=== PATIENT | female | born 1995 | race Caucasian/White ===

== ENCOUNTER 2018-07-23 02:59 | Emergency (ER) | payer BC ==
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
[2018-07-23] MEDS ORDERED: BACITRACIN ZINC OINTMENT 15 GM TP ONE (04:25)
[2018-07-23] MEDS ORDERED: HYDROCODONE/ACETAMINOPHEN 5-325 MG (6 TAB/ER DISP) PO PRN (04:25)
[2018-07-23 04:51] VITALS: BP 116/74
== END 2018-07-23 04:51 | disposition home or self-care (01) ==
LOC: ER 02:59
DX: T23.131A Burn of first degree of multiple right fingers (nail), not including thumb, initial encounter (principal); X19.XXXA Contact with other heat and hot substances, initial encounter
CPT/HCPCS: 99283; J3490

== ENCOUNTER → 2019-08-07 | Outpatient (CLI) | payer BC ==
--- NOTE | 2019-08-07 09:44 | WOMENS IMAGING REPORT ---
EXAM DESCRIPTION: U/S ABDOMEN LIMITED COMPLETED DATE/TIME: 08/07/2019 8:42 am REASON FOR STUDY: R10.11 RIGHT UPPER QUADRANT PAIN R10.11 RIGHT UPPER QUADRANT PAIN COMPARISON: None. TECHNIQUE: Dynamic and static grayscale images acquired of the right upper quadrant and recorded on PACS. Additional selected color Doppler and spectral images recorded. LIMITATIONS: Study limited due to acoustical interference from fat and from air in the bowel. FINDINGS: PANCREAS: Not visualized LIVER: Grossly normal size. Increased echogenicity from fatty infiltration, difficult to penetrate w ith the ultrasound energy LIVER VASCULATURE: Normal directional flow of the main portal vein and hepatic veins. GALLBLADDER: No stones. Normal wall thickness. No pericholecystic fluid. ULTRASOUND-DETECTED JONES'S SIGN: Negative. INTRAHEPATIC DUCTS AND COMMON DUCT: CBD and intrahepatic ducts normal caliber. No filling defects. INFERIOR VENA CAVA: Not visualized AORTA: Not visualized RIGHT KIDNEY: Normal size. Normal echogenicity. No solid or suspicious masses. No hydronephrosis. No calcifications. PERITONEAL CAVITY AND RIGHT PLEURAL SPACE: No ascites or effusions. OTHER: No other significant finding. IMPRESSION: No gallstones. No hydronephrosis right kidney Normal size liver with fatty infiltration TECHNICAL DOCUMENTATION: JOB ID: [id number] [employer]- All Rights Reserved Reading location - IP/workstation name: [email or web address]
== END ==
LOC: WI 08:18
PROVIDERS: ATTEND Surgery
DX: R10.11 Right upper quadrant pain (principal)
CPT/HCPCS: 76705

== ENCOUNTER 2020-03-03 23:47 | Emergency (ER) | payer BC ==
[2020-03-03] MEDS ORDERED: IPRATROPIUM/ALBUTEROL 0.5-2.5 MG/3 ML AMPUL NEB ONE (23:51)
[2020-03-03] MEDS ORDERED: PREDNISONE 20 MG TABLET PO ONE (23:51)
--- NOTE | 2020-03-03 23:56 | ER Document Report ---
ED General - General Chief Complaint: Asthma Exacerbation Stated Complaint: ASTHMA ATTACK Time Seen by Provider: 03/03/20 23:51 Primary Care Provider: TONYA MARLEY MD [ASSOCIATE] - Follow up as needed Mode of Arrival: Ambulatory Information source: Patient TRAVEL OUTSIDE OF THE [place] IN LAST 30 DAYS: No - HPI Onset: Just prior to arrival Onset/Duration: Sudden Quality of pain: No pain Severity: Moderate Pain Level: Denies Associated symptoms: Nonproductive cough, Shortness of breath, Other - Wheezing Exacerbated by: Denies Relieved by: Other - Albuterol Similar symptoms previously: Yes - with prior asthma attacks Recently seen / treated by doctor: No Notes: 24 year old female with a history of Asthma and prior Gastric Sleeve Surgery here in the ER for trouble breathing and concern of an Asthma attack. The patient says shortly before ER arrival she started to feel short of breath and tightness in her chest. The patient gave her self multiple puffs of her inhaler but she didnt feel like she was getting better so she came to the ER. The patient says she also feels like she is anxious and this could be contributing. The patient denies any recent fevers, chills, sweats, productive coughs, sore throat, known sick contacts. The patient says she was outside when the symptoms started and she does have significant seasonal allergies. - Related Data Allergies/Adverse Reactions: No Known Allergies Allergy (Verified 05/19/16 08:41) Past Medical History - General Information source: Patient - Social History Smoking Status: Never Smoker Frequency of alcohol use: Occasional Drug Abuse: None Lives with: Family Family History: Reviewed & Not Pertinent Pulmonary Medical History: Reports: Hx Asthma Renal/ Medical History: Denies: Hx Peritoneal Dialysis Psychiatric Medical History: Reports: Hx Anxiety, Hx Depression Past Surgical History: Reports: Other - Gastric Sleeve Surgery - Immunizations Immunizations up to date: Yes Hx Diphtheria, Pertussis, Tetanus Vaccination: Yes Review of Systems - Review of Systems Constitutional: No symptoms reported EENT: No symptoms reported Cardiovascular: No symptoms reported Respiratory: Cough - dry, Short of breath, Wheezing Gastrointestinal: No symptoms reported Genitourinary: No symptoms reported Female Genitourinary: No symptoms reported Musculoskeletal: No symptoms reported Skin: No symptoms reported Hematologic/Lymphatic: No symptoms reported Neurological/Psychological: No symptoms reported -: Yes All other systems reviewed and negative Physical Exam - Vital signs Vitals: Temp Pulse Resp BP Pulse Ox 98.6 F 82 19 141/118 H 100 03/04/20 00:04 03/04/20 00:04 03/04/20 00:04 03/04/20 00:04 03/04/20 00:04 Course - Re-evaluation Re-evalutation: 03/04/20 01:19 The patient came to the ER for an asthma attack. She self administered albuterol (she says she took about 5 puffs) prior to ER arrival. Patient was anxious on ER and had only mild expiratory wheezing. Patient felt much better after a dose of Prednisone 60mg and a Duoneb. Patient DCed to home with a 3 day burst of Prednisone. Patient says she has plenty of albuterol at home. - Vital Signs Vital signs: Temp Pulse Resp BP Pulse Ox 98.6 F 82 19 141/118 H 100 03/04/20 00:04 03/04/20 00:04 03/04/20 00:04 03/04/20 00:04 03/04/20 00:04 Discharge - Discharge Clinical Impression: Asthma Qualifiers: Asthma severity: moderate Asthma persistence: unspecified Asthma complication type: with acute exacerbation Qualified Code(s): J45.901 - Unspecified asthma with (acute) exacerbation Condition: Stable Disposition: HOME, SELF-CARE Instructions: Asthma ([facility]) Additional Instructions: Take prednisone as prescribed. Use your previously prescribed albuterol as needed. Follow up with your primary care doctor and discuss your ER visit with him/her. Prescriptions: Prednisone [Deltasone 20 mg Tablet] 60 mg PO DAILY 2 Days #9 tablet Referrals: TONYA MARLEY MD [ASSOCIATE] - Follow up as needed
[2020-03-04 01:18] VITALS: BP 155/94
== END 2020-03-04 01:26 | disposition home or self-care (01) ==
LOC: ER 23:47
DX: J45.901 Unspecified asthma with (acute) exacerbation (principal); R05 Cough; R06.02 Shortness of breath; R07.89 Other chest pain; Z79.899 Other long term (current) drug therapy
CPT/HCPCS: 94640; 99284; J7512; J7620

== ENCOUNTER → 2020-03-29 | Outpatient (CLI) | payer BC ==
[2020-03-29 16:58] LABS: ABSOLUTE EOSINOPHILS # (AUTO) 0.1 10^3/uL (0.0-0.6); ABSOLUTE LYMPHOCYTES (AUTO) 1.4 10^3/uL (0.5-4.7); ABSOLUTE MONOCYTES (AUTO) 0.5 10^3/uL (0.1-1.4); ABSOLUTE NEUT (AUTO) 4.5 10^3/uL (1.7-8.2); BASOPHILS % (AUTO) 0.7 % (0-2); EOSINOPHILS % (AUTO) 1.8 % (0-6); HEMATOCRIT 37.2 % (36.0-47.0); HEMOGLOBIN 12.3 g/dL (12.0-15.5); LYMPHOCYTES % (AUTO) 21.7 % (13-45); MEAN CORPUSCULAR HEMOGLOBIN 27.1 pg (27.0-33.4); MEAN CORPUSCULAR VOLUME 82 fl (80-97); MONOCYTES % (AUTO) 7.4 % (3-13); PLATELET COUNT 234 10^3/uL (150-450); RED BLOOD COUNT 4.53 10^6/uL (3.72-5.28); RED CELL DISTRIBUTION WIDTH 18.6 % (11.5-14.0); SEGMENTED NEUTROPHILS % (AUTO) 68.4 % (42-78); TOTAL CELLS COUNTED % (AUTO) 100 %; WHITE BLOOD COUNT 6.6 10^3/uL (4.0-10.5)
[2020-03-29 17:18] LABS: ALBUMIN 3.9 g/dL (3.5-5.0); ALKALINE PHOSPHATASE 85 U/L (38-126); ANION GAP 7 (5-19); ASPARTATE AMINO TRANSFERASE 23 U/L (14-36); BILIRUBIN,TOTAL 0.4 mg/dL (0.2-1.3); BLOOD UREA NITROGEN 14 mg/dL (7-20); CALCIUM 9.2 mg/dL (8.4-10.2); CARBON DIOXIDE 26 mmol/L (22-30); CHLORIDE 101 mmol/L (98-107); GLUCOSE 88 mg/dL (75-110); POTASSIUM 4.2 mmol/L (3.6-5.0); TOTAL PROTEIN 6.6 g/dL (6.3-8.2)
== END ==
LOC: OD 16:00
PROVIDERS: ATTEND Surgery
DX: Z09 Encounter for follow-up examination after completed treatment for conditions other than malignant neoplasm (principal); Z98.84 Bariatric surgery status
CPT/HCPCS: 36415; 80048; 80076; 82306; 82607; 82746; 84252; 84425; 84590; 85025

== ENCOUNTER → 2020-11-11 | Outpatient (CLI) | payer SELFPAY ==
[2020-11-11 13:33] LABS: HEMATOCRIT 41.3 % (36.0-47.0); HEMOGLOBIN 14.3 g/dL (12.0-15.5); MEAN CORPUSCULAR HEMOGLOBIN 33.2 pg (27.0-33.4); MEAN CORPUSCULAR HGB CONC 34.6 g/dL (32.0-36.0); MEAN CORPUSCULAR VOLUME 96 fl (80-97); PLATELET COUNT 195 10^3/uL (150-450); RED CELL DISTRIBUTION WIDTH 13.9 % (11.5-14.0); WHITE BLOOD COUNT 4.3 10^3/uL (4.0-10.5)
[2020-11-11 14:06] LABS: ALBUMIN 3.8 g/dL (3.5-5.0); ALKALINE PHOSPHATASE 94 U/L (38-126); ANION GAP 7 (5-19); ASPARTATE AMINO TRANSFERASE 209 U/L (14-36); BILIRUBIN,DIRECT 0.3 mg/dL (0.0-0.4); BILIRUBIN,TOTAL 0.7 mg/dL (0.2-1.3); BLOOD UREA NITROGEN 6 mg/dL (7-20); CARBON DIOXIDE 30 mmol/L (22-30); CHLORIDE 100 mmol/L (98-107); GLUCOSE 81 mg/dL (75-110); POTASSIUM 4.8 mmol/L (3.6-5.0); TOTAL PROTEIN 6.2 g/dL (6.3-8.2)
[2020-11-11 14:15] LABS: PREALBUMIN 43.3 mg/dL (17.6-36.0)
== END ==
LOC: OD 12:31
PROVIDERS: ATTEND Surgery
DX: K21.9 Gastro-esophageal reflux disease without esophagitis (principal); Z98.84 Bariatric surgery status
CPT/HCPCS: 36415; 80048; 80076; 84134; 84443; 84480; 85027